=== PATIENT | male | born 1985 | race African-American/Black ===

== ENCOUNTER 2022-01-11 08:39 | Emergency (ER) | payer MEDICARE, MEDICAID, SELFPAY ==
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
[2022-01-11 09:18] VITALS: BP 119/77; PULSE 100; RESP 18; TEMP 36.9; O2SAT 97; BMI 24.0
[2022-01-11 10:18] VITALS: BP 120/82; PULSE 88; RESP 14; TEMP 36.9; O2SAT 98
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
[2022-01-11 12:04] VITALS: BP 110/71; PULSE 85; RESP 14; TEMP 36.9; O2SAT 100
[2022-01-11 12:54] LABS: Amphetamine Screen Urine Not Detected (Not Detect); Barbiturates, Urine Not Detected (Not Detect); Benzodiazepines Screen Urine Not Detected (Not Detect); Cannabinoid Screen Urine POSITIVE (Not Detect); Cocaine Screen Urine Not Detected (Not Detect); Fentanyl, urine Not Detected (Not Detect); Opiate Screen Urine Not Detected (Not Detect); Phencyclidine Screen Urine POSITIVE (Not Detect)
[2022-01-11] MEDS: Ibuprofen 600 MG TABLET PO (13:28)
[2022-01-11] MEDS: Acetaminophen 325 MG TABLET 975 MG PO (13:28)
[2022-01-11 14:17] VITALS: BP 112/74; PULSE 75; RESP 18; TEMP 36.9; O2SAT 99
== END 2022-01-11 14:18 | disposition home or self-care (01) ==
PROVIDERS: Nurse Practitioner Family; Emergency Provider Emergency Medicine
DX: S13.4XXA Sprain of ligaments of cervical spine, initial encounter (principal); M79.601 Pain in right arm; M79.604 Pain in right leg; M54.2 Cervicalgia; M54.6 Pain in thoracic spine; R20.0 Anesthesia of skin; M25.551 Pain in right hip; M54.50 Low back pain, unspecified; V43.52XA Car driver injured in collision with other type car in traffic accident, initial encounter; Y93.9 Activity, unspecified; Y92.410 Unspecified street and highway as the place of occurrence of the external cause; Y99.9 Unspecified external cause status; Z79.899 Other long term (current) drug therapy
CPT/HCPCS: 72072; 72100; 72125; 73030; 73502; 73560; 80307; 99284

== ENCOUNTER 2023-04-12 14:11 | Outpatient (REF) | payer OTHER, MEDICARE, MEDICAID, SELFPAY ==
--- NOTE | ~2023-04-12 | XR_ITS ---
EXAMINATION: XR ABDOMEN KUB CLINICAL INDICATION: Residual foreign body in soft tissue COMPARISON: None available. TECHNIQUE: AP view of the abdomen. FINDINGS: The bowel gas pattern is normal with no evidence of ileus or obstruction. Punctate densities, probably metallic, project over the right upper quadrant. There is a 3 mm calcific density projects over the mid to lower pole of the right kidney. The left kidney is mostly obscured by bowel gas. Small calcifications the pelvis likely represent phleboliths. The bones are unremarkable. XR/XR KUB IMPRESSION: 1. Punctate densities, probably metallic, project over the right upper quadrant. 2. 3 mm calcific density projects over the mid to lower pole of the right kidney and may represent a renal calculus.
== END 2023-04-12 14:12 | disposition home or self-care (01) ==
LOC: HO.HOSX 14:11
PROVIDERS: Visit Provider Orthopaedic Surgery
DX: M54.2 Cervicalgia (principal); M79.5 Residual foreign body in soft tissue
CPT/HCPCS: 74018; 99202

== ENCOUNTER 2023-04-12 14:11 | Outpatient (AMB) | payer MEDICARE, MEDICAID, SELFPAY ==
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
[2023-04-12 14:16] VITALS: BMI 22.8
== END 2023-04-12 14:34 | disposition home or self-care (01) ==
PROVIDERS: Visit Provider Orthopaedic Surgery
DX: M54.2 Cervicalgia (principal)
CPT/HCPCS: 99202

== ENCOUNTER 2023-11-09 07:47 | Outpatient (AMB) | payer OTHER, SELFPAY ==
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
[2023-11-09 08:00] VITALS: BP 140/82; PULSE 98; O2SAT 97; BMI 23.1
== END 2023-11-09 10:18 | disposition home or self-care (01) ==
PROVIDERS: Visit Provider Nurse Practitioner Family
DX: F07.81 Postconcussional syndrome (principal); M79.601 Pain in right arm; R20.0 Anesthesia of skin; R29.2 Abnormal reflex; M54.2 Cervicalgia; R29.898 Other symptoms and signs involving the musculoskeletal system
CPT/HCPCS: 99204

== ENCOUNTER → 2023-11-09 07:47 | Outpatient (BNVA) | payer OTHER, SELFPAY | PROVIDERS: Visit Provider Nurse Practitioner Family | DX: F07.81 Postconcussional syndrome (principal); M79.601 Pain in right arm; R20.0 Anesthesia of skin; R29.2 Abnormal reflex; M54.2 Cervicalgia; R29.898 Other symptoms and signs involving the musculoskeletal system | CPT/HCPCS: 99202 ==

== ENCOUNTER 2023-12-20 07:28 | Outpatient (AMB) | payer OTHER, SELFPAY ==
--- NOTE | 2023-12-20 07:33 | MHC.OFFVIS ---
Vital Signs 12/20/23 07:34 Height 5 ft 8 in Weight 152 lb BMI 23.1 BP 130/78 Blood Pressure Location Rt brachial Position Sitting Pulse 79 Pulse Source Pulse Oximeter Pulse Oximetry (%) 99 Oxygen Delivery Method Room Air Intake Visit Reasons: follow up Post Concussion Headaches - CONF Intake Note: Patient prresents for follow up concussion headaches. patient states his headaches are better. Allergies Pork/Porcine Containing Products Adverse Reaction (Verified 12/20/23 07:37) yarsani preference Medication List - Last Reconciled 12/20/23 by LEXI Tony magnesium oxide 400 mg PO BEDTIME 30 days riboflavin (vitamin B2) 400 mg PO DAILY 30 days HPI Comments Details: 38-yr-old male presents for f/u visit. Pt denies any significant interval medical changes. Pt continues to have RUE aching pain aching, easily goes numb, feels like weight at times, weakness. He still needs to move his arm frequently. Pt reports his headcahes are a bit better, but is still photophobic. Pt states his bilateral lower extremities will still go numb during BM. He has not started Mag or B2 yet- d/t was fasting for yarsani reasons. [facility] Medical History Arthritis Family History Father HTN (hypertension) Social History Alcohol intake: never Patient Tobacco Use Status: Current everyday Tobacco user Current occupational status: unemployed Current occupation: rt hand Physical Exam Vital Signs: Last Vital Signs Pulse 79 12/20/23 07:34 BP 130/78 12/20/23 07:34 Pulse Ox 99 12/20/23 07:34 Oxygen Delivery Method Room Air 12/20/23 07:34 BMI result Body Mass Index 23.1 Const General: cooperative and no acute distress Resp Effort & Inspection: normal respiratory effort and able to speak in complete sentences Neuro Other: General: patient oriented x3 Photophobic No trmeor noted today. Right upper extremity fine finger movements slow Finger nose: Slow on the right Right 5th finger rest and postural flexion. Right upper extremity tone and elbow and wrist. Right ulnar distribution: Decreased sensation Bilateral, more so on right, decreased hand grasp. Cervical extension results in pain radiating down right upper extremity. Cognition (Neuro): normal cognition Gait exam (Neuro): Normal gait present Deep tendon reflexes (DTR's): Right triceps reflex intensity grade: 2+, Left triceps reflex intensity grade: 2+, Rt Biceps (C5, C6): 2+, Left biceps reflex intensity grade: 2+, Right brachioradialis reflex intensity grade: 2+, Left brachioradialis reflex intensity grade: 2+, Right patellar reflex intensity grade: 3+ and Left patellar reflex intensity grade: 2+ Psych Appearance: grossly normal Mental Status: mental status grossly normal Speech and movement: Clear speech present Affect: normal affect Attitude: cooperative Assessment & Plan Assessment & Plan (1) Postconcussive syndrome: Comment: s/p 02/05/23 work-related injury. Headache, photophobia. Code(s): F07.81 - Postconcussional syndrome Category: Medical (2) Pain and numbness of right upper extremity: Comment: w/ weakness, tremor s/p 02/05/23 work-related injury Code(s): M79.601 - Pain in right arm; R20.0 - Anesthesia of skin Category: Medical (3) Hyperreflexia: Comment: Right patellar. Code(s): R29.2 - Abnormal reflex Category: Medical (4) Weakness of right upper extremity: Code(s): R29.898 - Other symptoms and signs involving the musculoskeletal system Category: Medical (5) Bilateral leg numbness: Comment: triggered by bowel movement Code(s): R20.0 - Anesthesia of skin Category: Medical (6) Neck pain: Comment: s/p 02/05/23 work-related injury Code(s): M54.2 - Cervicalgia Category: Medical Plan For postconcussive headache and photophobia: Start Riboflavin 400mg qam Start Magnesium 400mg qhs. For pt's RUE s/s of pain, weakness, tremor, which raises suspicion for a traumatic induced thoracic outlet syndrome: Start alpha-lipoic acid 600mg qd. Pt would benefit from a cervical support pillow. CXR Chest MRI w/wo RUE US arterial duplex Future considerations: RUE/brachial plexus EMG/NCS, trial of TCA For the BLE numbness with bowel movements and positive exam findings of Rt patellar hyperreflexia. Pt is advised to undergo: T-spine MRI w/o L-spine MRI w/o. f/u upon review of above in in clinic in 3 months. Medications: New alpha lipoic acid 600 mg PO DAILY 30 tabs 6RF 30 days
[2023-12-20 07:34] VITALS: BP 130/78; PULSE 79; O2SAT 99; BMI 23.1
== END 2023-12-20 08:12 | disposition home or self-care (01) ==
PROVIDERS: Visit Provider Nurse Practitioner Family
DX: F07.81 Postconcussional syndrome (principal); M79.601 Pain in right arm; R20.0 Anesthesia of skin; R29.2 Abnormal reflex; R29.898 Other symptoms and signs involving the musculoskeletal system; M54.2 Cervicalgia
CPT/HCPCS: 99214

== ENCOUNTER → 2023-12-20 07:28 | Outpatient (BNVA) | payer OTHER, SELFPAY | PROVIDERS: Visit Provider Nurse Practitioner Family | DX: F07.81 Postconcussional syndrome (principal); M79.601 Pain in right arm; R20.0 Anesthesia of skin; R29.2 Abnormal reflex; R29.898 Other symptoms and signs involving the musculoskeletal system; M54.2 Cervicalgia | CPT/HCPCS: 99212 ==

== ENCOUNTER 2024-02-19 09:56 | Outpatient (AMB) | payer OTHER, SELFPAY ==
--- NOTE | 2024-02-19 09:58 | A.OFFVIS_ITS ---
Vital Signs 02/19/24 10:02 Height 5 ft 8 in Weight 161 lb 6 oz BMI 24.5 BP 132/70 Blood Pressure Location Lt brachial Position Sitting Pulse 95 Pulse Source Pulse Oximeter Pulse Oximetry (%) 97 Oxygen Delivery Method Room Air Intake Visit Reasons: follow up Post Concussion Headaches-CONF Intake Note: Patient presents for f/u. the right side of head feels numb. Right shoulder aches. Allergies Pork/Porcine Containing Products Adverse Reaction (Verified 12/20/23 07:37) sikhism preference Medication List - Last Reconciled 02/19/24 by LEXI Tony alpha lipoic acid 600 mg PO DAILY 30 days magnesium oxide 400 mg PO BEDTIME 30 days riboflavin (vitamin B2) 400 mg PO DAILY 30 days HPI Comments Details: 38-yr-old male presents for f/u visit of work-related injury. Pt denies any significant interval medical changes. Pt reports he was discharged from [facility]. Pt is no longer doing PT. Pt has not yet had the MRIs or studies advised at the last visit. He continues to have right side of head and right neck pain. He previously did have right neck cortisone injection- which helped but then seemed to worsen the pain as it wore off. He is still very photophobic. The headaches are worse when it is going to rain, early am or around 7pm. He is still not working. Id doing his daily activities, but needs to take frequent breaks. [facility] Medical History Arthritis Family History Father HTN (hypertension) Social History Alcohol intake: never Patient Tobacco Use Status: Current everyday Tobacco user Current occupational status: unemployed Current occupation: rt hand Physical Exam Vital Signs: Last Vital Signs Pulse 95 02/19/24 10:02 BP 132/70 02/19/24 10:02 Pulse Ox 97 02/19/24 10:02 Oxygen Delivery Method Room Air 02/19/24 10:02 BMI result Body Mass Index 24.5 Const General: cooperative and no acute distress Orientation/consciousness: patient oriented x3 Resp Effort & Inspection: normal respiratory effort and able to speak in complete sentences Neuro Other: Photophobic No tremor noted today. Right upper extremity fine finger movements slow Finger nose: Slow on the right Right 5th finger rest and postural flexion- improved. Right upper extremity tone and elbow and wrist. Pt continues to perform RUE rOM throughout the visit. Bilateral, more so on right, decreased hand grasp. No pronator drift. General: patient oriented x3 Cranial nerves: Yes CN's II-XII intact bilaterally Cognition (Neuro): normal cognition Psych Appearance: grossly normal Mental Status: mental status grossly normal Speech and movement: Clear speech present Affect: normal affect Attitude: cooperative Assessment & Plan Assessment & Plan (1) Postconcussive syndrome: Comment: s/p 02/05/23 work-related injury. Headache, photophobia. Code(s): F07.81 - Postconcussional syndrome Category: Medical (2) Pain and numbness of right upper extremity: Comment: w/ weakness, tremor s/p 02/05/23 work-related injury Code(s): M79.601 - Pain in right arm; R20.0 - Anesthesia of skin Category: Medical (3) Hyperreflexia: Comment: Right patellar. Code(s): R29.2 - Abnormal reflex Category: Medical (4) Weakness of right upper extremity: Code(s): R29.898 - Other symptoms and signs involving the musculoskeletal system Category: Medical (5) Bilateral leg numbness: Comment: triggered by bowel movement Code(s): R20.0 - Anesthesia of skin Category: Medical Plan For postconcussive headache and photophobia: Riboflavin 400mg qam Magnesium 400mg qhs. ? For pt's RUE s/s of pain, weakness, tremor, which raises suspicion for a traumatic induced thoracic outlet syndrome: Alpha-lipoic acid 600mg qd. Start Amitriptyline Pt would benefit from a cervical support pillow. CXR Chest MRI w/wo RUE US arterial duplex Future considerations: RUE/brachial plexus EMG/NCS, trial of TCA ? For the BLE numbness with bowel movements and positive exam findings of Rt patellar hyperreflexia. Pt is advised to undergo: T-spine MRI w/o L-spine MRI w/o. ? Will follow-up w/ pt's work comp on the previously requested orders. f/u upon review of above in in clinic in 3 months. Medications: New amitriptyline 10 mg PO BEDTIME 30 days 30 tabs 3RF amitriptyline work comp 10 mg PO BEDTIME 30 tabs 3RF 30 days Refilled alpha lipoic acid 600 mg PO DAILY 30 days 30 tabs 6RF alpha lipoic acid 600 mg PO DAILY 30 tabs 6RF 30 days magnesium oxide may hold for loose stools 400 mg PO BEDTIME 30 tabs 6RF 30 days riboflavin (vitamin B2) 400 mg PO DAILY 30 tabs 6RF 30 days magnesium oxide may hold for loose stools 400 mg PO BEDTIME 30 days 30 tabs 6RF riboflavin (vitamin B2) 400 mg PO DAILY 30 days 30 tabs 6RF Coding Level of Care Code Est Pt Level 4 (76921) Diagnoses Postconcussive syndrome F07.81 Pain and numbness of right upper extremity M79.601; R20.0 Hyperreflexia R29.2 Weakness of right upper extremity R29.898 Bilateral leg numbness R20.0
[2024-02-19 10:02] VITALS: BP 132/70; PULSE 95; O2SAT 97; BMI 24.5
== END 2024-02-19 11:12 | disposition home or self-care (01) ==
PROVIDERS: Visit Provider Nurse Practitioner Family
DX: F07.81 Postconcussional syndrome (principal); M79.601 Pain in right arm; R20.0 Anesthesia of skin; R29.2 Abnormal reflex; R29.898 Other symptoms and signs involving the musculoskeletal system
CPT/HCPCS: 99214

== ENCOUNTER → 2024-02-19 09:56 | Outpatient (BNVA) | payer OTHER, SELFPAY | PROVIDERS: Visit Provider Nurse Practitioner Family | DX: F07.81 Postconcussional syndrome (principal); M79.601 Pain in right arm; R20.0 Anesthesia of skin; R29.2 Abnormal reflex; R29.898 Other symptoms and signs involving the musculoskeletal system; Z79.899 Other long term (current) drug therapy | CPT/HCPCS: 99212 ==

== ENCOUNTER 2024-03-05 13:58 | Outpatient (REF) | payer OTHER, SELFPAY ==
--- NOTE | ~2024-03-05 | US_ITS ---
EXAMINATION: Noninvasive assessment of the right upper extremity with ARTERIAL DUPLEX. CLINICAL INFORMATION: Right neck and shoulder pain, injury TECHNIQUE: Duplex Doppler techniques with waveform analysis and measurement of velocities in the right subclavian, axillary, brachial, radial arteries were performed. COMPARISON: None FINDINGS: DIRECT DUPLEX DOPPLER FINDINGS: RIGHT LEG: Subclavian artery (proximal): 210 cm/s, phasicity: Triphasic Subclavian artery (mid): 133 cm/s, phasicity: Triphasic Subclavian artery (distal): 91.1 cm/s, phasicity: Triphasic Axillary artery: 81.3 cm/s, phasicity: Triphasic Brachial artery (proximal): 93.2 cm/s, phasicity: Triphasic Brachial artery (mid): 114 cm/s, phasicity: Triphasic Brachial artery (distal): 103 cm/s, phasicity: Triphasic Radial artery: 100 cm/s, phasicity: Triphasic Ulnar artery: 77.2 cm/s, phasicity: Triphasic US/US arterial duplex UE RT IMPRESSION: Normal duplex arterial ultrasound of the right upper extremity
== END 2024-03-05 13:59 | disposition home or self-care (01) ==
LOC: HO.US 13:58
PROVIDERS: Visit Provider Nurse Practitioner Family
DX: M79.601 Pain in right arm (principal); R20.0 Anesthesia of skin; R29.898 Other symptoms and signs involving the musculoskeletal system
CPT/HCPCS: 93931

== ENCOUNTER 2024-04-15 09:36 | Outpatient (REF) | payer OTHER, SELFPAY ==
--- NOTE | ~2024-04-15 | MR_ITS ---
EXAMINATION: MR THORACIC SPINE WITHOUT CONTRAST CLINICAL INFORMATION: Back pain, anesthesia of skin COMPARISON: None. TECHNIQUE: MRI of the thoracic spine was obtained using routine sequences without intravenous contrast. FINDINGS: Suboptimal evaluation. Only a limited sagittal T2 sequence was obtained. Straightening of the normal thoracic kyphosis. No significant spondylolisthesis. Thoracic vertebral body heights are maintained. No gross spinal cord signal abnormality. No significant spinal canal stenosis. The visualized neural foramen are not significantly narrowed. Please note multiple neural foramen are not included in the [id number] of this examination. MR/MR thoracic spine wo con IMPRESSION: Suboptimal evaluation with early exam termination from patient discomfort. Only a sagittal T2 sequence was obtained. Repeat examination is recommended for more accurate delineation when the patient is able to tolerate. Within the above-mentioned constraint, no high-grade spinal canal stenosis or gross thoracic spinal cord signal abnormality. Electronically signed by: Nathan Owens MD 04/25/2024 02:49 PM EDT
== END 2024-04-15 09:37 | disposition home or self-care (01) ==
LOC: HO.MRI 09:36
PROVIDERS: Visit Provider Nurse Practitioner Family
DX: R29.2 Abnormal reflex (principal); R20.0 Anesthesia of skin
CPT/HCPCS: 72146